=== PATIENT | female | born 1950 | race Caucasian/White ===

== ENCOUNTER 2017-03-05 07:06 | Inpatient (IN) | payer MEDICARE, OTHER ==
[2017-03-05] MEDS ORDERED: Scopolamine 1.5 MG Transdermal Patch TRDERM SCH (07:30)
[2017-03-05] MEDS ORDERED: Lactated Ringers 1,000 ML IV SCH ×2 (07:30→16:45)
[2017-03-05] MEDS ORDERED: Dexamethasone 4 MG/ML SDV ONE (08:40)
[2017-03-05] MEDS ORDERED: Neostigmine Methylsulfate 1 MG/ML 5 ML Syringe ONE (08:40)
[2017-03-05] MEDS ORDERED: fentaNYL 250 MCG/5 ML SDV ONE (08:40)
[2017-03-05] MEDS ORDERED: Propofol 200 MG/20 ML SDV ONE ×3 (08:40→13:07)
[2017-03-05] MEDS ORDERED: Rocuronium 50 MG/5 ML Vial ONE (08:40)
[2017-03-05] MEDS ORDERED: Ondansetron 4 MG/2 ML SDV ONE (08:40)
[2017-03-05] MEDS ORDERED: Succinylcholine/Normal Saline 200 MG/10 ML Syringe ONE (08:40)
[2017-03-05] MEDS ORDERED: Povidone-Iodine 10% Soln 118.25 ML Bottle ONE (08:53)
[2017-03-05] MEDS ORDERED: Thrombin (Bovine) 5,000 Unit Kit ONE (08:53)
[2017-03-05] MEDS ORDERED: Ketamine 500 MG/5 ML MDV IV SCH (09:15)
[2017-03-05] MEDS ORDERED: Tranexamic Acid 3,000 MG in Sodium Chloride 0.9% 100 ML TOP SCH (09:30)
[2017-03-05] MEDS ORDERED: Albuterol/Ipratropium 3.0-0.5 MG/3 ML Neb Soln NEB ONE (10:40)
[2017-03-05] MEDS: Clindamycin Phosphate 900 MG in Sodium Chloride 0.9% 100 ML IV ONE ×2 (11:02→15:30)
[2017-03-05] MEDS ORDERED: Acetaminophen/oxyCODONE 325-5 MG Tab PO PRN (13:58)
[2017-03-05] MEDS ORDERED: Magnesium Hydroxide 400 MG/5 ML Susp 30 ML Cup PO PRN (13:58)
[2017-03-05] MEDS ORDERED: HYDROmorphone 1 MG/ML Syringe IVPUSH PRN (13:58)
[2017-03-05] MEDS ORDERED: Zolpidem 5 MG Tab PO PRN (13:58)
[2017-03-05] MEDS ORDERED: Ondansetron 4 MG/2 ML SDV IVPUSH PRN (13:58)
[2017-03-05] MEDS ORDERED: Naloxone 0.4 MG/ML SDV IVPUSH PRN (13:58)
[2017-03-05] MEDS ORDERED: Aluminum Hydroxide/Magnesium Hydroxide/Simethicone Susp 30 ML Cup PO PRN (13:58)
[2017-03-05] MEDS ORDERED: Sennosides 8.6 MG Tab PO PRN (13:58)
[2017-03-05] MEDS ORDERED: Sodium Chloride 0.9% 10 ML Syringe FLUSH PRN (13:58)
[2017-03-05] MEDS ORDERED: ceFAZolin 2 GM in Sodium Chloride 0.9% 50 ML IV SCH (14:00)
[2017-03-05] MEDS ORDERED: traMADol 50 MG Tab PO PRN (14:14)
[2017-03-05] MEDS ORDERED: Dexamethasone 4 MG/ML SDV IVPUSH SCH (16:30)
[2017-03-05] MEDS ORDERED: Nicotine Polacrilex 2 MG Gum CHEW PRN ×2 (16:34→16:37)
[2017-03-05] MEDS ORDERED: Glucose Gel 15 GM in 37.5 GM Tube PO PRN (16:41)
[2017-03-05] MEDS ORDERED: 50% Dextrose in Water 50 ML Syringe IV PRN (16:41)
[2017-03-05] MEDS: Lactated Ringers 1,000 ML IV SCH (16:50)
[2017-03-05] MEDS: Insulin Aspart 100 Units/ML 3 ML Pen SUBCUT SCH ×3 (17:25→22:18)
[2017-03-05] MEDS: Clindamycin Phosphate 900 MG in Sodium Chloride 0.9% 100 ML IV SCH (17:26)
[2017-03-05] MEDS: Acetaminophen/oxyCODONE 325-5 MG Tab PO PRN (17:48)
[2017-03-05] MEDS: Dexamethasone 4 MG/ML SDV IVPUSH SCH ×2 (17:58→23:13)
--- NOTE | 2017-03-05 19:03 | OR ---
DATE OF PROCEDURE: 03/05/2017 PREOPERATIVE DIAGNOSES: L4-5 stenosis, spondylolisthesis, and radiculopathy. POSTOPERATIVE DIAGNOSES: L4-5 stenosis, spondylolisthesis, and radiculopathy. PROCEDURES: 1. L4-L5 transforaminal lumbar interbody fusion. 2. Laminectomy done required in addition to interbody placement. 3. Segmental instrumentation at L4-L5. 4. Interbody placement L4-L5. SECURITY AGENT: Rupinder Carter NP. ANESTHESIA: General endotracheal intubation. FLUID: Lactated Ringer solution. ESTIMATED BLOOD LOSS: 50 mL. COMPLICATIONS: None. SPECIMEN: None. DISCHARGE DISPOSITION: Stable to PACU. INDICATION FOR THE PROCEDURE: The patient was seen preoperatively in the clinic. She had failed nonoperative treatment. Preoperative imaging confirmed the above-mentioned diagnosis. Risks and benefits of the procedure were explained to the patient. Informed consent was obtained. DETAILS OF PROCEDURE: The patient was seen preoperatively by myself and the Anesthesia staff in the preop holding area, where the operative site was marked. She was brought to the operative suite by the Anesthesia staff, where general anesthesia was administered. Neuromonitoring leads were placed. A sterile Gardner catheter was placed. A sterile drape was placed over the fluoroscopy unit. The patient was then placed into a prone position on a Daryl table. All extremities were found to be well padded. Neuromonitoring was normal at baseline and continued to be normal throughout the case. The patient's back was then prepped and draped in a sterile manner. Time-out was called identifying the correct patient, the correct procedure, the correct site, and the antibiotics had been in with an appropriate period of time. Lateral fluoroscopy was used to identify the level of the L4 vertebrae, L5 vertebrae, as well as L4-L5 interspace and this was marked. A midline incision was made over the L4 and L5 transverse processes. Retraction was obtained with cerebellar bleed which was controlled with Bovie electrocautery as well as a 5.0 Aquamantys unit. Dissection was carried down to the fascia. The dissection was then carried down over the spinous processes of L4, L5, as well as her respective lamina, facets, pars, and down to the transverse process of L4 and L5 bilaterally. I then inserted VersaTREK blades which was 75 mm. I inserted 2 of these. I then confirmed my space again with the fluoroscopy unit. I then removed any soft tissue and decorticated the facets over the pedicles of L4 and L5. Starting on the right, and then placed the screws in the following manner. A drill hole was then made to get a blush at approximately the midpoint of the transverse process and then the PediGuard was used to safely place a pedicle tract followed by pedicle probe to ensure that all four sites had bone and that if there was a portion that was through the ventral port of the vertebrae, that I could stop. I then measured the screw length, I tapped, and then used a pedicle probe again and then placed screws. I used 6.5 mm Globus Creo screws. I took films on the right and then repeated the procedure on the left side. After this had been performed, I then tested all my screws which all of them tested above 25. I then removed any soft tissue off the interspinous ligaments and then collected my spinous process and lamina for bone graft. I removed the lamina by bringing laterally along the lamina bilaterally and then using a wide Rodrigues to crack it open. Therefore, not using a Kerrison to remove the lamina and protect the dura. I then removed the entirety of the L4 inferior facet on the right and L4-L5 superior facet on the right. As the patient was having right- sided radiculopathy, I identified the L4 nerve which was very small. I then used the bipolar electrocautery to close the disk space as well as the Aquamantys 5.0 unit. I then used a 7 shaver and then under fluoroscopy, I entered the disk space at L4-L5 and carried it ventrally as far as I could. I then shaved with a #8 shaver. I did use a distractor on the right screws to get a little bit more room. We then used a curette to prepare the disk space. I then used some autograft and placed in the anterior using a bone final in the L4- L5 interspace. I then inserted an 8 x 22 Globus Rise spacer and then expanded this under fluoroscopy. After this had been accomplished, we then placed our tulips on our screw heads and then placed rods and then put on my screw caps and then locked them into position. After this had been accomplished, we then copiously irrigated with 3 L of Betadine infused irrigation. I applied a mixture of synthetic graft from globus with autograft obtained from the laminectomy and applied it to the left transverse processes and posterior lateral space after bringing the L4 and L5 transverse processes as well as the lateral facet and pars at that level to provide for good fusion. After this had been performed, I then applied some FloSeal along the lateral recesses as well as into the remainder of the disk space. I then tamped this with a damp Ray-Willy and then inserted Gelfoam and approximately 20 mL of tranexamic acid. I then closed with #2 Vicryl in an interlocking manner, #2 Vicryl in a running manner, 0 Vicryl pops for the deep subcu space followed by 2-0 Vicryl pops in an interrupted manner for the superficial subcutaneous layer followed by 2-0 Monocryl and Dermabond as well as sterile dressing. The leads were normal at the end of the case and the patient was then transferred back into the hospital bed in supine position and taken to PACU in a stable condition. Kishor Donis DO /[id number]
[2017-03-05] MEDS ORDERED: diphenhydrAMINE 25 MG Cap PO PRN (19:59)
--- NOTE | 2017-03-05 20:07 | PCM.CONS ---
H&P History of Present Illness - General Date of Service: 03/05/17 Admit Problem/Dx: Admission Diagnosis/Problem Admission Diagnosis/Problem Spinal stenosis Source of Information: Patient, Old Records, Provider, RN Notes Reviewed History Limitations: Reports: No Limitations - History of Present Illness Initial Comments - Free Text/Narative: This patient is a 66-year-old woman who was admitted earlier today by Dr. Douglas Donis following surgical repair of lumbar spinal stenosis. I been asked to see her for hospitalist consult and assistance in postoperative medical management. She is done well during the initial postoperative period, pain control has been good and she has remained hemodynamically stable. Currently denies any nausea or vomiting, chest pain, or shortness of breath. She does have extensive been fairly complicated past medical history including coronary artery disease, peripheral vascular disease, type 2 diabetes mellitus, and chronic kidney disease. Lower Back Pain Score (Numeric/FACES): 5 - Related Data Allergies/Adverse Reactions: Allergies Allergy/AdvReac Type Severity Reaction Status Date / Time Penicillins Allergy Severe Difficulty Verified 03/04/17 13:53 Breathing acetaminophen Allergy Rash Verified 03/01/17 11:09 adhesive tape Allergy Other Verified 03/01/17 11:09 cefazolin Allergy Hives Verified 03/01/17 11:09 isosorbide [From Imdur] Allergy Hives Verified 03/01/17 11:09 niacin Allergy Rash Verified 03/01/17 11:09 nickel Allergy Rash Verified 03/01/17 11:09 oxycodone [From Percocet] Allergy Hives Verified 03/01/17 11:09 Home Medications: Home Meds Aspirin 162 mg PO DAILY 02/13/17 [History] Clopidogrel [Plavix] 75 mg PO DAILY 02/13/17 [History] Cyclobenzaprine HCl 5 mg PO DAILY PRN 02/13/17 [History] EPINEPHrine [Epinephrine] 0.3 mg IM ONETIME PRN 02/13/17 [History] Fenofibrate Nanocrystallized [Fenofibrate] 145 mg PO DAILY 02/13/17 [History] Gabapentin [Neurontin] 1,200 mg PO BID 02/13/17 [History] Insulin Aspart [Novolog] 60 - 90 unit SQ TIDMEALS 02/13/17 [History] Insulin Glarg,Human.Rec.Analog [LantUS Solostar] 70 unit SQ DAILY 02/13/17 [ History] Ketoconazole [Ketoconazole 2%] 1 applic TOP BID 02/13/17 [History] Liraglutide [Victoza] 1.8 mg SUBCUT DAILY 02/13/17 [History] Metoprolol Succinate [Toprol XL] 50 mg PO DAILY 02/13/17 [History] Nitroglycerin [Nitrostat] 1 tab SL ASDIRECTED PRN 02/13/17 [History] Pantoprazole [ProTONIX] 40 mg PO DAILY 02/13/17 [History] Sennosides/Docusate Sodium [Senna-Docusate Sodium] 1 tab PO DAILY 02/13/17 [ History] atorvaSTATin [Lipitor] 1.5 tab PO BEDTIME 02/13/17 [History] cycloSPORINE [Restasis] 1 each EYEBOTH BID 02/13/17 [History] traMADol [Ultram] 50 mg PO Q6H PRN 02/13/17 [History] Past Medical History HEENT History: Reports: Impaired Vision Cardiovascular History: Reports: Bypass, CAD, High Cholesterol, Hypertension, [place] , Other (See Below) Other Cardiovascular History: CABGx3 2008 Gastrointestinal History: Reports: Chronic Constipation, GERD, Hiatal Hernia Genitourinary History: Reports: Renal Calculus, UTI, Recurrent 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 Musculoskeletal History: Reports: Other (See Below) Other Musculoskeletal History: low back pain Neurological History: Reports: Concussion Endocrine/Metabolic History: Reports: Diabetes, Type II Hematologic History: Reports: Blood Transfusion(s) Dermatologic History: Reports: Other (See Below) Other Dermatologic History: dry skin - Infectious Disease History Infectious Disease History: Reports: Chicken Pox, Measles, Shingles - Past Surgical History HEENT Surgical History: Reports: Oral Surgery, Tonsillectomy Cardiovascular Surgical History: Reports: Coronary Artery Bypass GI Surgical History: Reports: Appendectomy, Cholecystectomy, EGD Female Surgical History: Reports: Hysterectomy, Salpingo-Oophorectomy Endocrine Surgical History: Reports: None Neurological Surgical History: Reports: None Musculoskeletal Surgical History: Reports: Shoulder Surgery, Other (See Below) Other Musculoskeletal Surgeries/Procedures:: stents/angioplasty bilateral legs Dermatological Surgical History: Reports: Skin Biopsy Social & Family History - Family History Family Medical History: Noncontributory - Tobacco Use Smoking Status *Q: Current Every Day Smoker Years of Tobacco use: 54 Packs/Tins Daily: 0.5 - Caffeine Use Caffeine Use: Reports: Tea - Recreational Drug Use Recreational Drug Use: No H&P Review of Systems - Review of Systems: Review Of Systems: See Below General: Reports: No Symptoms HEENT: Reports: No Symptoms Pulmonary: Reports: No Symptoms Cardiovascular: Reports: No Symptoms Gastrointestinal: Reports: No Symptoms Genitourinary: Reports: No Symptoms Musculoskeletal: Reports: Back Pain, Other (Muscle spasms) Skin: Reports: No Symptoms Psychiatric: Reports: No Symptoms Neurological: Reports: No Symptoms Hematologic/Lymphatic: Reports: No Symptoms Immunologic: Reports: No Symptoms Exam - Exam Exam: See Below - Vital Signs Vital Signs: Last Vital Signs Temp 98.7 F 03/05/17 19:43 Pulse 60 03/05/17 14:30 Resp 18 03/05/17 19:43 BP 118/47 L 03/05/17 19:43 Pulse Ox 96 03/05/17 19:43 Weight: 151 lb 3 oz - Exam Quality Assessment: DVT Prophylaxis General: Alert, Oriented, Cooperative, Mild Distress Neck: Supple, Trachea Midline, +2 Carotid Pulse wo Bruit Lungs: Clear to Auscultation, Normal Respiratory Effort Cardiovascular: Regular Rate, Regular Rhythm, Normal S1, Normal S2. No: Systolic Murmur, Diastolic Murmur Abdomen: Normal Bowel Sounds, Soft Extremities: 3, Normal Inspection, 10 Skin: Warm, Dry, Intact - Patient Data Lab Results Last 24 hrs: Laboratory Results - last 24 hr 03/05/17 03/05/17 Range/Units 07:30 07:30 Sodium 140 (140-148) mmol/L Potassium 4.4 (3.6-5.2) mmol/L Chloride 106 (100-108) mmol/L Carbon Dioxide 25 (21-32) mmol/L Anion Gap 8.8 (5.0-14.0) mmol/L BUN 23 H (7-18) mg/dL Creatinine 1.5 H (0.6-1.0) mg/dL Est Cr Clr Drug Dosing 26.14 mL/min Estimated GFR (MDRD) 35 L (>60) Glucose 148 H (74-106) mg/dL Calcium 9.3 (8.5-10.1) mg/dL Total Bilirubin 0.3 (0.2-1.0) mg/dL AST 22 (15-37) U/L ALT 27 (12-78) U/L Alkaline Phosphatase 72 (46-116) U/L Total Protein 7.4 (6.4-8.2) g/dL Albumin 3.4 (3.4-5.0) g/dL Globulin 4.0 H (2.3-3.5) g/dL Albumin/Globulin Ratio 0.9 L (1.2-2.2) Blood Type O POSITIVE Gel Antibody Screen Negative Result Diagrams: 03/05/17 07:30 Consult PN Assessment/Plan Procedures: Procedures CULTURE OTHR SPECIMN AEROBIC (02/14/17) X-RAY EXAM L-2 SPINE 4/>VWS (02/14/17) Problem List Initiated/Reviewed/Updated: Yes My Orders last 24 hours: My Active Orders 03/05/17 16:41 Blood Glucose Check, Bedside [RC] QIDACANDBED Communication Order [RC] ASDIRECTED Diabetes Education [RC] Click to Edit Notify Provider [RC] PRN Dextrose 50% in Water 50 ml IV ONETIME PRN Dextrose [Glutose 15] 15 gm PO ONETIME PRN 03/05/17 16:45 Insulin Aspart [NovoLOG] See Protocol SUBCUT ASDIRECTED 03/05/17 17:00 Insulin Aspart [NovoLOG] 60 - 90 unit SUBCUT TIDMEALS 03/05/17 19:59 diphenhydrAMINE [Benadryl] 25 mg PO Q6H PRN 03/05/17 21:00 GLUCOSE POC LAB TO COLLECT [POC] QIDACANDBED Gabapentin [Neurontin] 1,200 mg PO BID atorvaSTATin [Lipitor] 60 mg PO BEDTIME cycloSPORINE [Restasis] 0 each EYEBOTH BID 03/06/17 07:30 GLUCOSE POC LAB TO COLLECT [POC] QIDACANDBED Pantoprazole [ProTONIX] 40 mg PO DAILY@0730 03/06/17 09:00 Aspirin 162 mg PO DAILY Docusate Sodium/Sennosides [Senna Plus] 1 tab PO DAILY Fenofibrate,Micronized [Fenofibrate] 134 mg PO DAILY Insulin Detemir [Levemir] 70 unit SUBCUT DAILY Liraglutide [Victoza] 1.8 mg SUBCUT DAILY Metoprolol Succinate [Toprol XL] 50 mg PO DAILY 03/06/17 11:30 GLUCOSE POC LAB TO COLLECT [POC] QIDACANDBED 03/06/17 16:30 GLUCOSE POC LAB TO COLLECT [POC] QIDACANDBED 03/06/17 21:00 GLUCOSE POC LAB TO COLLECT [POC] QIDACANDBED 03/07/17 07:30 GLUCOSE POC LAB TO COLLECT [POC] QIDACANDBED 03/07/17 11:30 GLUCOSE POC LAB TO COLLECT [POC] QIDACANDBED 03/07/17 16:30 GLUCOSE POC LAB TO COLLECT [POC] QIDACANDBED 03/07/17 21:00 GLUCOSE POC LAB TO COLLECT [POC] QIDACANDBED 03/08/17 07:30 GLUCOSE POC LAB TO COLLECT [POC] QIDACANDBED 03/08/17 11:30 GLUCOSE POC LAB TO COLLECT [POC] QIDACANDBED 03/08/17 16:30 GLUCOSE POC LAB TO COLLECT [POC] QIDACANDBED 03/08/17 21:00 GLUCOSE POC LAB TO COLLECT [POC] QIDACANDBED 03/09/17 07:30 GLUCOSE POC LAB TO COLLECT [POC] QIDACANDBED 03/09/17 11:30 GLUCOSE POC LAB TO COLLECT [POC] QIDACANDBED 03/09/17 16:30 GLUCOSE POC LAB TO COLLECT [POC] QIDACANDBED 03/09/17 21:00 GLUCOSE POC LAB TO COLLECT [POC] QIDACANDBED 03/10/17 07:30 GLUCOSE POC LAB TO COLLECT [POC] QIDACANDBED 03/10/17 11:30 GLUCOSE POC LAB TO COLLECT [POC] QIDACANDBED 03/10/17 16:30 GLUCOSE POC LAB TO COLLECT [POC] QIDACANDBED 03/10/17 21:00 GLUCOSE POC LAB TO COLLECT [POC] QIDACANDBED 03/11/17 07:30 GLUCOSE POC LAB TO COLLECT [POC] QIDACANDBED 03/11/17 11:30 GLUCOSE POC LAB TO COLLECT [POC] QIDACANDBED 03/11/17 16:30 GLUCOSE POC LAB TO COLLECT [POC] QIDACANDBED 03/11/17 21:00 GLUCOSE POC LAB TO COLLECT [POC] QIDACANDBED 03/12/17 07:30 GLUCOSE POC LAB TO COLLECT [POC] QIDACANDBED 03/12/17 11:30 GLUCOSE POC LAB TO COLLECT [POC] QIDACANDBED 03/12/17 16:30 GLUCOSE POC LAB TO COLLECT [POC] QIDACANDBED 03/12/17 21:00 GLUCOSE POC LAB TO COLLECT [POC] QIDACANDBED 03/13/17 07:30 GLUCOSE POC LAB TO COLLECT [POC] QIDACANDBED 03/13/17 11:30 GLUCOSE POC LAB TO COLLECT [POC] QIDACANDBED 03/13/17 16:30 GLUCOSE POC LAB TO COLLECT [POC] QIDACANDBED 03/13/17 21:00 GLUCOSE POC LAB TO COLLECT [POC] QIDACANDBED 03/14/17 07:30 GLUCOSE POC LAB TO COLLECT [POC] QIDACANDBED 03/14/17 11:30 GLUCOSE POC LAB TO COLLECT [POC] QIDACANDBED 03/14/17 16:30 GLUCOSE POC LAB TO COLLECT [POC] QIDACANDBED 03/14/17 21:00 GLUCOSE POC LAB TO COLLECT [POC] QIDACANDBED 03/15/17 07:30 GLUCOSE POC LAB TO COLLECT [POC] QIDACANDBED 03/15/17 11:30 GLUCOSE POC LAB TO COLLECT [POC] QIDACANDBED 03/15/17 16:30 GLUCOSE POC LAB TO COLLECT [POC] QIDACANDBED 03/15/17 21:00 GLUCOSE POC LAB TO COLLECT [POC] QIDACANDBED 03/16/17 07:30 GLUCOSE POC LAB TO COLLECT [POC] QIDACANDBED 03/16/17 11:30 GLUCOSE POC LAB TO COLLECT [POC] QIDACANDBED 03/16/17 16:30 GLUCOSE POC LAB TO COLLECT [POC] QIDACANDBED Plan: ASSESSMENT AND RECOMMENDATIONS STATUS POST SURGICAL REPAIR OF LUMBAR SPINAL STENOSIS-stable and doing well during the initial postoperative period -Ongoing postoperative care per Dr. Donis CORONARY ARTERY DISEASE-stable and currently asymptomatic -Continue outpatient medical management -Resume aspirin therapy -Continue to hold Plavix CHRONIC KIDNEY DISEASE STAGE III -Closely monitor urine output and renal function during hospital stay. TYPE 2 DIABETES MELLITUS -Continue outpatient dosing of long and short acting insulin -4 times a day glucometers -High-dose sliding scale NovoLog HYPERTENSION-blood pressure has been stable during the initial postoperative period -Continue outpatient medical regimen Requesting Provider: BS Date Consult Requested: 03/05/17 Reason for Consult: Postoperative medical management Patient History Reviewed: Yes Admission H&P Reviewed: Yes
[2017-03-05] MEDS ORDERED: atorvaSTATin 20 MG Tab PO SCH (21:00)
[2017-03-05] MEDS: Gabapentin 400 MG Cap PO SCH (22:17)
[2017-03-05] MEDS: cycloSPORINE Ophth Drops U/D Box of 30 EYEBOTH SCH (22:17)
[2017-03-06] MEDS: Clindamycin Phosphate 900 MG in Sodium Chloride 0.9% 100 ML IV SCH ×2 (01:33→09:54)
[2017-03-06] MEDS: Acetaminophen/oxyCODONE 325-5 MG Tab PO PRN ×3 (01:36→13:29)
[2017-03-06] MEDS: Lactated Ringers 1,000 ML IV SCH (01:38)
[2017-03-06] MEDS: Dexamethasone 4 MG/ML SDV IVPUSH SCH ×2 (05:49→11:06)
[2017-03-06] MEDS ORDERED: Pantoprazole 40 MG Tab.CR PO SCH (07:30)
[2017-03-06] MEDS: Insulin Aspart 100 Units/ML 3 ML Pen SUBCUT SCH ×2 (07:44→11:06)
[2017-03-06] MEDS: Gabapentin 400 MG Cap PO SCH (08:04)
[2017-03-06] MEDS ORDERED: Liraglutide (rDNA Origin) 0.6 MG/0.1 ML 3 ML Pen SUBCUT SCH (09:00)
[2017-03-06] MEDS ORDERED: Aspirin 81 MG Tab.Chew PO SCH (09:00)
[2017-03-06] MEDS ORDERED: Insulin Detemir 100 Units/ML 3 ML Pen SUBCUT SCH (09:00)
[2017-03-06] MEDS ORDERED: Fenofibrate,Micronized 67 MG Cap PO SCH (09:00)
[2017-03-06] MEDS ORDERED: Metoprolol Succinate 50 MG Tab.ER PO SCH (09:00)
[2017-03-06] MEDS: cycloSPORINE Ophth Drops U/D Box of 30 EYEBOTH SCH (09:18)
[2017-03-06 12:08] VITALS: BP 104/43
--- NOTE | 2017-04-04 14:39 | PCM.DCSUM1 ---
Discharge Summary - Hospital Course Free Text/Narrative:: Kaylen is status postop day 1 of a lumbar fusion. She is doing very well. Patient is very eager to go home today. She has her at home to take care of her. Patient was sent home on Percocet and Valium. She is to wear her brace as much as possible. Patient is to notify us if she has any other issues. Patient has no pain at this time she is ambulating without any difficulties. She has minimal pain at this time. - Discharge Data Discharge Date: 03/06/17 Discharge Disposition: Home, Self-Care 01 Condition: Good - Patient Summary/Data Consults: Consultations 03/05/17 13:58 Consult to Physician [CONS] Routine Consulting Provider: Lopez Irwin Call Completed to Consulting Physician: Yes OT Evaluation and Treatment [CONS] Routine Please Evaluate and Treat. OT Reason for Consult: Strengthening This query below is only for informational purposes and is not editable. PT Evaluation and Treatment [CONS] Routine Please Evaluate and Treat. PT Reason for Consult: Strengthening This query below is only for informational purposes and is not editable. - Patient Instructions Diet: Usual Diet as Tolerated Activity: Apply Ice, As Tolerated Driving: Do Not Drive Showering/Bathing: May Shower Wound/Incision Care: Keep Operative Site/Wound Site Clean and Dry, Change Dressing Daily - Discharge Plan Prescriptions/Med Rec: Acetaminophen/oxyCODONE [Percocet 325-5 MG] 1 tab PO Q6H PRN #90 tablet PRN Reason: Pain Diazepam [Valium] 1 mg PO BID PRN #20 tab PRN Reason: Spasms Sennosides [Senna] 8.6 mg PO BID PRN #50 tablet PRN Reason: Constipation Home Medications: Home Meds Aspirin 162 mg PO DAILY 02/13/17 [History] Clopidogrel [Plavix] 75 mg PO DAILY 02/13/17 [History] EPINEPHrine [Epinephrine] 0.3 mg IM ONETIME PRN 02/13/17 [History] Fenofibrate Nanocrystallized [Fenofibrate] 145 mg PO DAILY 02/13/17 [History] Gabapentin [Neurontin] 1,200 mg PO BID 02/13/17 [History] Insulin Aspart [Novolog Flexpen] 60 - 90 unit SQ TIDMEALS 02/13/17 [History] Insulin Glarg,Human.Rec.Analog [Lantus Solostar] 70 unit SQ DAILY 02/13/17 [ History] Ketoconazole [Nizoral 2% Shampoo] 1 applic TOP BID 02/13/17 [History] Liraglutide [Victoza] 1.8 mg SUBCUT DAILY 02/13/17 [History] Metoprolol Succinate [Toprol XL] 50 mg PO DAILY 02/13/17 [History] Nitroglycerin [Nitrostat] 1 tab SL ASDIRECTED PRN 02/13/17 [History] Pantoprazole [ProTONIX] 40 mg PO DAILY 02/13/17 [History] atorvaSTATin [Lipitor] 1.5 tab PO BEDTIME 02/13/17 [History] cycloSPORINE [Restasis] 1 each EYEBOTH BID 02/13/17 [History] Acetaminophen/oxyCODONE [Percocet 325-5 MG] 1 tab PO Q6H PRN #90 tablet [Rx] Diazepam [Valium] 1 mg PO BID PRN #20 tab 03/06/17 [Rx] Sennosides [Senna] 8.6 mg PO BID PRN #50 tablet 03/06/17 [Rx] Patient Handouts: Acetaminophen; Oxycodone tablets, Spinal Fusion, Care After, [id number], Diazepam tablets, Preventing Constipation After Surgery - Discharge Summary/Plan Comment DC Time >30 min.: Yes - Patient Data Vitals - Most Recent: Last Vital Signs Temp 36.9 C 03/06/17 09:57 Pulse 58 L 03/06/17 12:08 Resp 16 03/06/17 09:57 BP 104/43 L 03/06/17 12:08 Pulse Ox 92 L 03/06/17 13:21 Weight - Most Recent: 151 lb 3 oz Med Orders - Current: Current Medications Discontinued Medications Al Hydroxide/Mg Hydroxide (Mag-Al Plus) 30 ml PO Q4H PRN PRN Reason: Indigestion Albuterol/Ipratropium (Duoneb 3.0-0.5 Mg/3 Ml) 3 ml NEB ONETIME ONE Stop: 03/05/17 10:41 Last Admin: 03/05/17 10:41 Dose: 3 ml Aspirin (Aspirin) 162 mg PO DAILY [facility] Last Admin: 03/06/17 08:03 Dose: Not Given Atorvastatin Calcium (Lipitor) 60 mg PO BEDTIME [facility] Last Admin: 03/05/17 22:17 Dose: 60 mg Cyclosporine (Restasis) 0 each EYEBOTH BID [facility] Last Admin: 03/06/17 09:18 Dose: 1 drop Dexamethasone (Dexamethasone) Confirm Administered Dose 4 mg .ROUTE .STK-MED ONE Stop: 03/05/17 08:41 Dexamethasone (Dexamethasone) 4 mg IVPUSH Q6H [facility] Stop: 03/06/17 10:31 Dexamethasone (Dexamethasone) 4 mg IVPUSH Q6H [facility] Stop: 03/06/17 12:01 Last Admin: 03/06/17 11:06 Dose: 4 mg Dextrose (Glutose 15) 15 gm PO ONETIME PRN PRN Reason: Hypoglycemia Dextrose/Water (Dextrose 50% In Water) 50 ml IV ONETIME PRN PRN Reason: Hypoglycemia Diazepam (Valium) 5 mg IVPUSH Q6H PRN PRN Reason: Spasms Last Admin: 03/05/17 16:51 Dose: 5 mg Diphenhydramine HCl (Benadryl) 25 mg PO Q6H PRN PRN Reason: Itching Fenofibrate (Fenofibrate) 134 mg PO DAILY [facility] Last Admin: 03/06/17 08:04 Dose: 134 mg Fentanyl (Sublimaze) Confirm Administered Dose 500 mcg .ROUTE .STK-MED ONE Stop: 03/05/17 08:41 Gabapentin (Neurontin) 1,200 mg PO BID [facility] Last Admin: 03/06/17 08:04 Dose: 1,200 mg Glycopyrrolate () Confirm Administered Dose 1 mg .ROUTE .STK-MED ONE Stop: 03/05/17 08:41 Hydromorphone HCl (Dilaudid) 1 mg IVPUSH Q2H PRN PRN Reason: Pain Clindamycin Phosphate 900 mg/ (Sodium Chloride) 106 mls @ 200 mls/hr IV ONETIME ONE Stop: 03/05/17 09:31 Last Admin: 03/05/17 15:30 Dose: Not Given Lactated Ringer's (Ringers, Lactated) 1,000 mls @ 0 mls/hr IV ASDIRECTED [facility] PRN Reason: KVO Last Admin: 03/05/17 08:16 Dose: 25 mls/hr Tranexamic Acid 3,000 mg/ (Sodium Chloride) 130 mls @ 0 mls/hr TOP ASDIRECTED [facility] PRN Reason: Protocol Stop: 03/05/17 12:00 Cefazolin Sodium 2 gm/ Sodium (Chloride) 50 mls @ 100 mls/hr IV Q8H [facility] Stop: 03/06/17 06:29 Clindamycin Phosphate 900 mg/ (Sodium Chloride) 106 mls @ 212 mls/hr IV Q8H [facility] Stop: 03/06/17 10:29 Last Admin: 03/06/17 09:54 Dose: 212 mls/hr Lactated Ringer's (Ringers, Lactated) 1,000 mls @ 100 mls/hr IV ASDIRECTED [facility] Lactated Ringer's (Ringers, Lactated) 1,000 mls @ 100 mls/hr IV ASDIRECTED [facility] Last Admin: 03/06/17 01:38 Dose: 100 mls/hr Insulin Aspart (Novolog) 60 - 90 unit SUBCUT TIDMEALS [facility] Last Admin: 03/06/17 11:06 Dose: 90 units Insulin Aspart (Novolog) 0 unit SUBCUT ASDIRECTED [facility] PRN Reason: Protocol Last Admin: 03/05/17 22:18 Dose: 9 units Insulin Detemir (Levemir) 70 unit SUBCUT DAILY [facility] Last Admin: 03/06/17 09:17 Dose: 70 unit Liraglutide (Victoza) 1.8 mg SUBCUT DAILY [facility] Last Admin: 03/06/17 09:18 Dose: 1.8 mg Magnesium Hydroxide (Milk Of Magnesia) 30 ml PO BID PRN PRN Reason: Constipation Metoprolol Succinate (Toprol Xl) 50 mg PO DAILY [facility] Last Admin: 03/06/17 08:09 Dose: 50 mg Naloxone HCl (Narcan) 0.2 mg IVPUSH ONETIME PRN PRN Reason: Oversedation Stop: 03/05/17 13:59 Neostigmine Methylsulfate (Neostigmine) Confirm Administered Dose 5 mg .ROUTE .STK-MED ONE Stop: 03/05/17 08:41 Nicotine Polacrilex (Nicorelief) 2 mg CHEW Q1H PRN PRN Reason: Anxiety Nicotine Polacrilex (Nicorelief) 2 mg CHEW Q1H PRN PRN Reason: Anxiety Ondansetron HCl (Zofran) Confirm Administered Dose 4 mg .ROUTE .STK-MED ONE Stop: 03/05/17 08:41 Ondansetron HCl (Zofran) 8 mg IVPUSH Q4H PRN PRN Reason: Nausea/Vomiting Oxycodone/Acetaminophen (Percocet 325-5 Mg) 2 tab PO Q4H PRN PRN Reason: Pain Oxycodone/Acetaminophen (Percocet 325-5 Mg) 2 tab PO Q6H PRN PRN Reason: Pain Last Admin: 03/06/17 13:29 Dose: 2 tab Pantoprazole Sodium (Protonix) 40 mg PO DAILY@0730 [facility] Last Admin: 03/06/17 07:15 Dose: 40 mg Povidone Iodine (Betadine 10% Soln) Confirm Administered Dose 1 ml .ROUTE .STK- MED ONE Stop: 03/05/17 08:54 Propofol (Diprivan 20 Ml) Confirm Administered Dose 200 mg .ROUTE .STK-MED ONE Stop: 03/05/17 08:41 Propofol (Diprivan 20 Ml) Confirm Administered Dose 600 mg .ROUTE .STK-MED ONE Stop: 03/05/17 11:16 Propofol (Diprivan 20 Ml) Confirm Administered Dose 200 mg .ROUTE .STK-MED ONE Stop: 03/05/17 13:08 Pyridostigmine [place] (Regonol) Confirm Administered Dose 10 mg .ROUTE .STK- MED ONE Stop: 03/05/17 14:04 Rocuronium [place] (Zemuron) Confirm Administered Dose 50 mg .ROUTE .STK-MED ONE Stop: 03/05/17 08:41 Scopolamine (Transderm-Scop) 1.5 mg TRDERM Q72H [facility] Stop: 03/08/17 03:00 Last Admin: 03/05/17 08:19 Dose: 1.5 mg Senna (Senna) 8.6 mg PO BID PRN PRN Reason: Constipation Senna/Docusate Sodium (Senna Plus) 1 tab PO DAILY [facility] Last Admin: 03/06/17 08:05 Dose: 1 tab Sodium Chloride (Saline Flush) 10 ml FLUSH ASDIRECTED PRN PRN Reason: Keep Vein Open Succinylcholine Chloride (Succinylcholine In Ns Pf) Confirm Administered Dose 200 mg .ROUTE .STK-MED ONE Stop: 03/05/17 08:41 Thrombin (Thrombin-Jmi) Confirm Administered Dose 5,000 unit .ROUTE .STK-MED ONE Stop: 03/05/17 08:54 Last Admin: 03/05/17 12:03 Dose: 10,000 unit Tramadol HCl (Ultram) 50 mg PO Q6H PRN PRN Reason: PAIN Zolpidem Tartrate (Ambien) 5 mg PO BEDTIME PRN PRN Reason: Sleep *Q Meaningful Use (DIS) - VTE *Q VTE Criteria *Q: - Stroke *Q Stroke Criteria *Q: - AMI *Q AMI Criteria *Q:
== END 2017-03-06 14:13 | disposition home or self-care (01) | DRG 460 ==
LOC: JP.SDSSCHI 07:06 → JP.SDS 07:06 → EDSTATUS 07:30 → JP.ICU 13:58
PROVIDERS: ADMIT Orthopaedic Surgery; ATTEND Orthopaedic Surgery
PROC: 0SB20ZZ Excision of Lumbar Vertebral Disc, Open Approach (ICD-10-PCS; principal; 2017-03-05)
PROC: 0QH004Z Insertion of Internal Fixation Device into Lumbar Vertebra, Open Approach (ICD-10-PCS; principal; 2017-03-05)
PROC: 0SG00AJ Fusion of Lumbar Vertebral Joint with Interbody Fusion Device, Posterior Approach, Anterior Column, Open Approach (ICD-10-PCS; principal; 2017-03-05)
DX: M48.06 Spinal stenosis, lumbar region (principal); I12.9 Hypertensive chronic kidney disease with stage 1 through stage 4 chronic kidney disease, or unspecified chronic kidney disease; E11.22 Type 2 diabetes mellitus with diabetic chronic kidney disease; F17.210 Nicotine dependence, cigarettes, uncomplicated; N18.3 Chronic kidney disease, stage 3 (moderate); Z79.4 Long term (current) use of insulin; K21.9 Gastro-esophageal reflux disease without esophagitis; I25.10 Atherosclerotic heart disease of native coronary artery without angina pectoris; M79.7 Fibromyalgia; L21.9 Seborrheic dermatitis, unspecified; E78.2 Mixed hyperlipidemia; K59.09 Other constipation; I73.9 Peripheral vascular disease, unspecified; H54.7 Unspecified visual loss; Z95.1 Presence of aortocoronary bypass graft; I25.2 Old myocardial infarction; Z87.440 Personal history of urinary (tract) infections; Z79.82 Long term (current) use of aspirin; Z88.1 Allergy status to other antibiotic agents; Z88.0 Allergy status to penicillin; Z88.8 Allergy status to other drugs, medicaments and biological substances; Z91.048 Other nonmedicinal substance allergy status
CPT/HCPCS: 36415; 76001; 80048; 80053; 82962; 85025; 86850; 86900; 86901; 97116-GP; 97162-GP; 97165-GO; 97530-GP; 97535-GP; A9270-GY; C1713; J1100; J2405; J2704; J3010; J3360; J7030; J7120; J7620; S0077